=== PATIENT | female | born 2000 | race African-American/Black ===

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

== ENCOUNTER 2022-12-01 22:56 | Emergency (ER) | payer MEDICAID, OTHER ==
[~2022-12-01] VITALS: Ht 160 cm; Wt 105.9 kg
[2022-12-02] MEDS ORDERED: KETOROLAC 60MG/2ML VIAL IM ONE (00:15)
[2022-12-02] MEDS ORDERED: DEXAMETHASONE 10 MG/ML VIAL IM ONE (00:15)
[2022-12-02 00:31] VITALS: BP 135/89
== END 2022-12-02 00:30 | disposition home or self-care (01) ==
LOC: ER 22:56
DX: J02.9 Acute pharyngitis, unspecified (principal); R09.81 Nasal congestion
CPT/HCPCS: 81025; 96372; 99284; J1100; J1885; Z7610